=== PATIENT | female | born 2005 | race Caucasian/White ===

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

== ENCOUNTER → 2024-06-10 11:11 | Outpatient (BNVA) | payer SELFPAY | PROVIDERS: PCP Nurse Practitioner Family; Visit Provider Nurse Practitioner | DX: J02.9 Acute pharyngitis, unspecified (principal) | CPT/HCPCS: 87880 ==

== ENCOUNTER → 2025-01-27 08:28 | Outpatient (BNVA) | payer MEDICAID, SELFPAY | PROVIDERS: PCP Nurse Practitioner Family; Visit Provider Nurse Practitioner Women's Health | DX: N92.6 Irregular menstruation, unspecified (principal) | CPT/HCPCS: 81025 ==

== ENCOUNTER → 2025-01-29 12:38 | Outpatient (BNVA) | payer MEDICAID, SELFPAY | PROVIDERS: PCP Nurse Practitioner Family; Visit Provider Nurse Practitioner Women's Health | DX: Z34.00 Encounter for supervision of normal first pregnancy, unspecified trimester (principal) | CPT/HCPCS: 80307; 84315; 85025; 86592; 86762; 86803; 86850; 86900; 87086; 87340; 87806 ==

== ENCOUNTER → 2025-02-03 14:18 | Outpatient (BNVA) | payer MEDICAID, SELFPAY | PROVIDERS: PCP Nurse Practitioner Family; Visit Provider Obstetrics & Gynecology | DX: Z34.90 Encounter for supervision of normal pregnancy, unspecified, unspecified trimester (principal) | CPT/HCPCS: 84315; 87491; 87591; 87661 ==

== ENCOUNTER → 2025-02-08 14:03 | Outpatient (BNVA) | payer MEDICAID, SELFPAY | PROVIDERS: PCP Nurse Practitioner Family; Visit Provider Nurse Practitioner Women's Health | DX: Z36.9 Encounter for antenatal screening, unspecified (principal) | CPT/HCPCS: 76801 ==

== ENCOUNTER → 2025-03-12 07:36 | Outpatient (BNVA) | payer MEDICAID, SELFPAY | PROVIDERS: PCP Nurse Practitioner Family; Visit Provider Obstetrics & Gynecology | DX: Z34.02 Encounter for supervision of normal first pregnancy, second trimester (principal); Z3A.16 16 weeks gestation of pregnancy | CPT/HCPCS: 84315 ==

== ENCOUNTER 2025-03-31 16:06 | Outpatient (CLI) | payer MEDICAID, SELFPAY ==
--- NOTE | 2025-03-31 16:45 | USR_ITS ---
PROCEDURE INFORMATION: Exam: US After First Trimester, Transabdominal Exam date and time: 03/31/2025 4:29 PM Age: 19 years old Clinical indication: Screening exam; Routine US, uterus; Additional info: Z34.90 - encounter for supervision of normal , u. . . , LABS AND CLINICAL REPORTS: Last menstrual period start date: Unknown Gestational age (Established): 20 w 4 d Estimated due date (Established): 08/14/2025 TECHNIQUE: Imaging protocol: Real-time transabdominal obstetrical ultrasound of the maternal pelvis and a second or third trimester with image documentation. COMPARISON: US OB <= 14 weeks fetus [id number] 02/08/2025 2:08 PM FINDINGS: Gestation: Single live intrauterine gestation. heart rate: 146 bpm presentation and position: Cephalic Placenta: Unremarkable. No subchorionic bleed. Placenta is posterior. Amniotic fluid (Qualitative): Amniotic fluid is normal for gestational age. Amniotic fluid index: Not objectively measured ANATOMY: midline falx: Normal cerebellum: Normal lateral ventricles: Normal cisterna magna: Normal choroid plexus: Normal face: Upper lip is normal heart four-chamber view, heart size and position: Normal heart right ventricular outflow tract: Normal heart left ventricular outflow tract: Normal kidneys: Normal stomach: Normal urinary bladder: Normal spine: Normal Umbilical cord and insertion: Normal upper limbs: Normal lower limbs: Normal external genitalia: Male BIOMETRY: Gestational age (AUA): 20 weeks 3 days by the current biometry; 20 weeks 4 days by previous estimate Estimated due date (AUA): 08/15/2025 by the current biometry; 08/14/2025 by the previous estimate Estimated weight: 336.74 g. EFW by AC, BPD, FL, HC, [place]lock 1985 Biparietal diameter (BPD): 4.92 cm. EGA (BPD) is 20 w 6 d. 62.7 % percentile Head circumference (HC): 18.37 cm. EGA (HC) is 20 w 5 d. 49.1 % percentile Abdominal circumference (AC): 14.75 cm. EGA (AC) is 20 w 0 d. 26.4 % percentile Femur length (FL): 3.25 cm. EGA (FL) is 20 w 1 d. 26.8 % percentile HC/AC: 1.25. (Normal range: 1.07 - 1.25) FL/HC: 17.69. (Normal range: 16.41 - 20.01) FL/BPD: 66.06 FL/AC: 22.03 MATERNAL: Uterus: Unremarkable. Cervix: Cervical length measures 3.3 cm. Closed. Negative for funneling. Right ovary/adnexa: Obscured by lack of adequate acoustic window. Left ovary/adnexa: Obscured by lack of adequate acoustic window. Intraperitoneal space: No intraperitoneal free fluid. US/US OB >= 14 weeks fetus [id number] IMPRESSION: 1. Single live intrauterine gestation. 2. Unremarkable 2nd trimester surveillance.
== END 2025-03-31 16:07 | disposition home or self-care (01) ==
LOC: RAD 16:09
PROVIDERS: PCP Family Medicine; Visit Provider Obstetrics & Gynecology
DX: Z34.82 Encounter for supervision of other normal pregnancy, second trimester (principal); Z3A.21 21 weeks gestation of pregnancy
CPT/HCPCS: 76805

== ENCOUNTER → 2025-04-07 16:50 | Outpatient (BNVA) | payer MEDICAID, SELFPAY | PROVIDERS: PCP Family Medicine; Visit Provider Obstetrics & Gynecology | DX: Z34.02 Encounter for supervision of normal first pregnancy, second trimester (principal); Z3A.21 21 weeks gestation of pregnancy | CPT/HCPCS: 84315 ==

== ENCOUNTER → 2025-04-29 13:49 | Outpatient (BNVA) | payer MEDICAID, SELFPAY | PROVIDERS: PCP Family Medicine; Visit Provider Nurse Practitioner Women's Health | DX: Z34.80 Encounter for supervision of other normal pregnancy, unspecified trimester (principal); Z34.01 Encounter for supervision of normal first pregnancy, first trimester | CPT/HCPCS: 81000; 82950 ==

== ENCOUNTER → 2025-05-31 10:51 | Outpatient (BNVA) | payer MEDICAID, SELFPAY | PROVIDERS: PCP Family Medicine; Visit Provider Obstetrics & Gynecology | DX: O26.893 Other specified pregnancy related conditions, third trimester (principal); Z3A.29 29 weeks gestation of pregnancy; Z67.41 Type O blood, Rh negative; Z87.891 Personal history of nicotine dependence | CPT/HCPCS: 84315; 85025; 86850 ==

== ENCOUNTER 2025-06-03 19:18 | Outpatient (CLI) | payer MEDICAID, SELFPAY ==
[2025-06-03 19:45] VITALS: BP 119/63; PULSE 83
[2025-06-03 19:55] VITALS: BP 114/65; PULSE 85
[2025-06-03 20:10] VITALS: BP 114/61; PULSE 78
[2025-06-03 20:25] VITALS: BP 114/60; PULSE 79
[2025-06-03 20:32] VITALS: BP 114/60; PULSE 79; RESP 16; O2SAT 100
== END 2025-06-03 20:32 | disposition home or self-care (01) ==
LOC: OPOB 19:28 → OBGYN 19:30
PROVIDERS: PCP Family Medicine; Visit Provider Obstetrics & Gynecology
DX: O36.8190 Decreased fetal movements, unspecified trimester, not applicable or unspecified (principal); Z3A.00 Weeks of gestation of pregnancy not specified
CPT/HCPCS: 99211

== ENCOUNTER → 2025-06-28 10:41 | Outpatient (BNVA) | payer MEDICAID, SELFPAY | PROVIDERS: PCP Family Medicine; Visit Provider Obstetrics & Gynecology | DX: Z34.03 Encounter for supervision of normal first pregnancy, third trimester (principal); Z3A.33 33 weeks gestation of pregnancy | CPT/HCPCS: 84315 ==